=== PATIENT | male | born 1950 | race Caucasian/White ===

== ENCOUNTER 2018-11-24 12:45 | Inpatient (IN) | payer OTHER ==
[~2018-11-24] VITALS: Ht 165.1 cm; Wt 79.4 kg
[2018-11-24] MEDS ORDERED: LIPITOR20 MG PO (15:04)
[2018-11-24] MEDS ORDERED: NORVASC5 MG PO (15:05)
[2018-11-24] MEDS ORDERED: ZANTAC150 MG PO (15:05)
[2018-11-24] MEDS ORDERED: NAPR500T14 PO (15:06)
[2018-11-24] MEDS ORDERED: TRAMADOL HCL50 MG PO (15:06)
[2018-11-24] MEDS ORDERED: GABAPENTIN100 MG PO (15:06)
[2018-11-24] MEDS ORDERED: GAVISCON EXTRA355 ML PO (15:06)
[2018-12-05] MEDS ORDERED: NEURONTIN800 MG PO (11:44)
[2018-12-05] MEDS ORDERED: COLACE100 MG PO (11:44)
[2018-12-05] MEDS ORDERED: BACTRIM DS TAB1 EACH PO (11:45)
[2018-12-05] MEDS ORDERED: CLONAZEPAM0.5 M1 PO (11:46)
[2018-12-05] MEDS ORDERED: PERCOCET 5-3251 EACH PO (11:46)
== END 2018-12-06 15:22 | disposition home or self-care (01) | DRG 455 ==
LOC: SURH 12-05 04:50 → O/R 12-05 04:50 → SURH 12-05 09:45
PROVIDERS: ADMIT Orthopaedic Surgery Orthopaedic Surgery of the Spine
PROC: 0SG0071 Fusion of Lumbar Vertebral Joint with Autologous Tissue Substitute, Posterior Approach, Posterior Column, Open Approach (ICD-10-PCS; 2018-12-05)
PROC: 0SG00A0 Fusion of Lumbar Vertebral Joint with Interbody Fusion Device, Anterior Approach, Anterior Column, Open Approach (ICD-10-PCS; 2018-12-05)
PROC: 0ST20ZZ Resection of Lumbar Vertebral Disc, Open Approach (ICD-10-PCS; 2018-12-05)
PROC: 07DS3ZZ Extraction of Vertebral Bone Marrow, Percutaneous Approach (ICD-10-PCS; 2018-12-05)
PROC: 0SG00AJ Fusion of Lumbar Vertebral Joint with Interbody Fusion Device, Posterior Approach, Anterior Column, Open Approach (ICD-10-PCS; principal; 2018-12-05 09:45)
DX: M47.26 Other spondylosis with radiculopathy, lumbar region (principal); M48.062 Spinal stenosis, lumbar region with neurogenic claudication; M51.16 Intervertebral disc disorders with radiculopathy, lumbar region; I10 Essential (primary) hypertension; Z88.0 Allergy status to penicillin